=== PATIENT | female | born 1945 | race Caucasian/White ===

== ENCOUNTER → 2016-12-03 | Outpatient (CLI) | payer MEDICARE, OTHER ==
--- NOTE | 2016-12-04 10:55 | US ---
EXAM DESCRIPTION: Thyroid CLINICAL HISTORY: THYROID NODULE COMPARISON: None. TECHNIQUE: Routine sonographic imaging of the thyroid gland. FINDINGS: Right thyroid lobe is homogeneous measuring 4.3 x 1.65 x 1.24 cm. A partially cystic relatively well-defined ovoid mass is observed in the lateral aspect of the right thyroid lobe measuring 2.16 x 1.54 x 1.14 cm. It has some central calcification within it. No hyperemia. Thyroid isthmus is normal in appearance measuring 0.38 cm. Left thyroid lobe is homogeneous measuring 3.45 x 1.39 x 0.91 cm. No thyroid mass. No hyperemia. IMPRESSION: Nodule is observed in the right thyroid lobe and deserves further evaluation with biopsy. Electronically signed by: Austin Olivas MD 12/04/2016 10:54 AM CDT
== END ==
LOC: US 10:55
PROVIDERS: ATTEND Family Medicine
DX: E04.1 Nontoxic single thyroid nodule (principal)

== ENCOUNTER → 2017-09-20 | Outpatient (CLI) | payer MEDICARE, OTHER ==
--- NOTE | 2017-09-20 14:41 | MRI ---
EXAM DESCRIPTION: Lumbar Spine w/o Contrast : Magnetic Resonance Imaging. CLINICAL HISTORY: RADICULOPATHY COMPARISON: None. TECHNIQUE: Multiplanar, multiple standard sequences, non contrast MRI, lumbar spine. FINDINGS: L5-S1: Grade 1 anterolisthesis. Posterior midline 4 mm disc bulge. Mild canal narrowing. Bilateral facet arthrosis and flavum ligament hypertrophy. Moderate right foraminal narrowing and mild left foraminal narrowing. L4-5: Disc desiccation and mild posterior disc bulge. Bilateral flavum ligament hypertrophy and right facet arthrosis. AP canal diameter 10 mm. Disc bulge into the bilateral foramina which are stenotic more on the right than the left. L3-4: Moderate disc space loss. Disc desiccation. Minimal anterior bulging. Posterior broad-based 4 mm disc bulge abutting the thecal sac and the descending L4 nerves. Left facet arthrosis with bilateral ligament hypertrophy. AP canal diameter 10 mm, borderline central stenotic. Moderate right foraminal narrowing and moderate to severe left foraminal narrowing. L2-3: Disc desiccation and moderate disc space loss. Anterior disc bulge and anterior Modic type II endplate reactive changes. Trace retrolisthesis. Bilateral facet arthrosis and bilateral flavum ligament hypertrophy. Moderate canal narrowing. Bilateral foramina are patent. L1-2: Disc desiccation and anterior disc space loss and Modic type II endplate reactive changes. Anterior bulging disc and endplate ridging. Posterior broad-based 4 mm disc bulge. Posterior flavum ligament hypertrophy. Canal and bilateral foramina are patent. T12-L1: Normal disc signal and disc space with no bulging. Posterior elements are unremarkable. Canal and foramina are patent. Conus terminates at L1. Minimal dextroscoliosis. Paravertebral soft tissues are unremarkable. Probable cyst left kidney less than 1 cm diameter. Ectasia of the abdominal aorta.. Normal marrow signal in the remaining vertebral bodies and the posterior elements. Vertebral bodies are not compressed at any level. IMPRESSION: 1. Grade 1 anterolisthesis L5-S1 with posterior disc bulge. Moderate right foraminal narrowing. 2. Borderline mild central canal stenosis L4-5 which is multifactorial with prominent flavum ligaments posteriorly. Bilateral borderline foraminal stenosis. Correlate for bilateral L4 radiculopathy. 3. Posterior broad-based disc bulge. Borderline mild central canal stenosis which is multifactorial. Moderate to severe left foraminal narrowing. 4. Anterior disc space loss disc bulge and moderate spondylosis at L1-2 and L2-3. Canal and foramina are not stenotic. Electronically signed by: Chris Anne MD 09/20/2017 2:39 PM CDT
== END ==
LOC: MRI 09:56
PROVIDERS: ATTEND Physical Medicine & Rehabilitation
DX: M43.17 Spondylolisthesis, lumbosacral region (principal); M51.26 Other intervertebral disc displacement, lumbar region

== ENCOUNTER → 2017-10-29 | Outpatient (CLI) | payer MEDICARE, OTHER ==
--- NOTE | 2017-10-29 20:20 | US ---
THYROID ULTRASOUND CLINICAL INFORMATION: Thyroid nodule. TECHNIQUE: Routine transcutaneous scannin-D and Doppler modes. COMPARISON: Ultrasound thyroid 12/03/2016. FINDINGS: Thyroid size: Right 3.9 x 1.8 x 1.8 cm. Left 3.2 x 1.6 x 1.1 cm. Isthmus 2.9 mm thick. Texture: Heterogeneous. Estimated total number of nodules >/=1 cm: 1 Number of spongiform nodules >/=2 cm not described below (TR1): 0 Number of mixed cystic and solid nodules >/=1.5 cm not described below (TR2): 0 Nodule #: 1 Maximum size: 2.0 cm; All dimensions 1.5 x 1.3 cm Location: right; mid Composition: solid/almost completely solid (2) Echogenicity: hypoechoic (2) Shape: not [id number] (0) Margins: ill-defined (0) Echogenic foci: macrocalcifications (1) ACR TI-RADS total points: 5. ACR TI-RADS risk category: TR4 (4-6 points) Significant change in size (>/= 20% in two dimensions and minimal increase of 2 mm): No Change in features: No Change in ACR TI-RADS risk category: No ACR TI-RADS recommendation: Ultrasound-guided fine needle aspiration. Soft tissue around the thyroid gland: No distinct mass or cyst. No large calcifications or parenchymal edema. No overlying skin changes. No abnormal vascularity. IMPRESSION: 1. Almost completely solid hypoechoic 2 cm nodule (# 1) with parallel orientation, ill-defined margins, and central macrocalcification. Stable since the prior study. ACR TI RADS risk category TR 4. If fine-needle biopsy was not performed since the prior recommendation in November 2016, this procedure is still recommended, under ultrasound guidance. 2. The soft tissue on the thyroid gland is unremarkable. ACR TI-RADS recommendations: TR5 (>/=7 points) - FNA if >/=1 cm, follow-up if 0.5 - 0.9 cm every year for 5 years TR4 (4-6 points) - FNA if >/=1.5 cm, follow-up if 1 - 1.4 cm in 1, 2, 3 and 5 years TR3 (3 points) - FNA if >/=2.5 cm, follow -up if 1.5 - 2.4 cm in 1, 3 and 5 years TR2 (2 points) and TR1 (0 points) - No FNA or follow-up * ACR TI-RADS recommends that no more than two nodules with the highest ACR TI-RADS total point should be biopsied and no more than four nodules should be followed. Electronically signed by: Chris Anne MD 10/29/2017 8:19 PM CDT
== END ==
LOC: US 13:30
PROVIDERS: ATTEND Nurse Practitioner Family
DX: E04.1 Nontoxic single thyroid nodule (principal)

== ENCOUNTER → 2017-11-08 | Outpatient (CLI) | payer MEDICARE, OTHER | LOC: GMATM 10:48 | PROVIDERS: ATTEND Family Medicine | DX: E04.1 Nontoxic single thyroid nodule (principal) ==

== ENCOUNTER → 2018-04-10 | Outpatient (CLI) | payer MEDICARE, OTHER ==
--- NOTE | 2018-04-10 11:25 | MAM ---
EXAM DESCRIPTION: 3D Screening BILATERAL : Digital Mammography. CLINICAL HISTORY: 72 years Female ANNUAL SCREENING . No complaints. No personal or family history of breast cancer. Childbirth. Postmenopausal 30 years. Currently on HRT. Bilateral breast augmentation. Lifetime risk of developing breast cancer (Tyrer-Cuzick model)(%): 3.3. COMPARISON: prior. No prior reports available. TECHNIQUE: Bilateral CC and MLO projection full-field images, with Jose Implant Displacement digital tomosynthesis mammographic technique. Bilateral 2-D digital full-field images, MLO and CC projections, non-displaced. CAD Bilateral digital 2-D full-field MLO images. CAD not available for tomosynthesis or 2-D images. FINDINGS: The breast parenchymal density pattern is: Heterogeneously dense breast tissue, which may obscure small masses. No skin thickening or nipple retraction. Bilateral subglandular saline implants. Symmetrical folding noted in the capsules bilaterally stable since the prior study. Bilateral axillary lymph nodes. Bilateral solitary microcalcifications. No new focal, stellate mass or density, focal asymmetry , and no suspicious microcalcifications bilaterally. Stable mammograms compared to prior study. Taking into account, differences in mammographic technique. IMPRESSION: Benign exam. BIRAD CATEGORY: 2 BENIGN FINDINGS. RECOMMENDATIONS: FOLLOW UP: Routine digital bilateral mammographic screening, one year interval from March 2018. Written communication explaining the IMPRESSION and follow-up, will be mailed to the patient and referring health care provider. According to the [employer], yearly mammograms are recommended starting at age 40 and continuing as long as a woman is in good health. Any breast change noted on a breast self-exam should be reported promptly to the patient's healthcare provider. Breast MRI is recommended for women with an approximately 20-25% or greater lifetime risk of breast cancer, including women with a strong family history of breast or ovarian cancer and women who have been treated for Hodgkin's disease. A negative mammographic report should not delay tissue diagnosis in patients with significant clinical history or physical findings. Extremely dense breast tissue limits the sensitivity of digital mammography. Electronically signed by: Chris Anne MD 04/10/2018 11:24 AM [employer]
== END ==
LOC: MAMMO 09:30
PROVIDERS: ATTEND Family Medicine
DX: Z12.31 Encounter for screening mammogram for malignant neoplasm of breast (principal)

== ENCOUNTER → 2018-05-21 | Outpatient (CLI) | payer MEDICARE, OTHER | LOC: GMAJ 15:18 | PROVIDERS: ATTEND Family Medicine | DX: I10 Essential (primary) hypertension (principal) ==

== ENCOUNTER → 2018-12-08 | Outpatient (CLI) | payer MEDICARE, OTHER | LOC: RESP 10:57 | PROVIDERS: ATTEND Family Medicine | DX: R00.2 Palpitations (principal) ==

== ENCOUNTER → 2019-11-03 | Outpatient (CLI) | payer MEDICARE, OTHER | LOC: GMAJ 11:33 | PROVIDERS: ATTEND Family Medicine | DX: E03.9 Hypothyroidism, unspecified (principal); I10 Essential (primary) hypertension; E78.00 Pure hypercholesterolemia, unspecified ==

== ENCOUNTER → 2020-02-05 | Outpatient (CLI) | payer MEDICARE, OTHER ==
--- NOTE | 2020-02-08 09:12 | CT ---
EXAM DESCRIPTION: Chest w/Contrast CLINICAL HISTORY: 74 years, Female, SHORTNESS OF BREATH COMPARISON: None TECHNIQUE: Thin-section axial CT images are obtained during rapid bolus administration of nonionic IV contrast media. Reconstructed MPR images are created and reviewed as well. This exam was performed according to our departmental dose-optimization program, which includes automated exposure control, adjustment of the mA and/or kV according to patient size and/or use of iterative reconstruction technique. FINDINGS: The lungs are adequately expanded with no acute infiltrates or pleural effusions or dominant masses. Minimal linear scarring and 3 mm nodularity in the anterolateral left apex noted. There is a small 5 x 3 mm pleural-based nodule along the undersurface of the right minor fissure in the anterolateral right lung base. Significant emphysematous change or bullous disease or fibrotic lung disease is not apparent. A modest retrocardiac hiatal hernia incidentally noted. Heart size is normal without pericardial effusion. Aortic atherosclerosis noted. Very little coronary artery calcification noted. Below the diaphragms no gross abnormality evident. Central hilar or middle mediastinal or superior mediastinal mass is not apparent. No abnormality of the thoracic inlet noted. The axillary regions are clear. Bilateral breast implants overlie the lower chest anterolaterally on each side. Modest anterior degenerative spurring in the dorsal spine without compression deformity or destructive process noted. The sternum appears intact. No abnormality of the chest wall evident. IMPRESSION: 1. Essentially clear lung funes with 3 x 5 mm noncalcified nodule along the undersurface of the right minor fissure without additional worrisome nodules identified. In a low risk patient for metastatic disease or primary pulmonary malignancy no further follow-up recommended. Consider [address] follow-up in a high risk patient. 2. Minimal pleural parenchymal scarring left pulmonary apex. No significant emphysematous or fibrotic or bullous disease seen. 3. Mild degenerative changes dorsal spine and bilateral breast implants noted in place. 2017 Fleischner Society Recommendations for Single Solid Lung Nodule Follow-Up based on size (average of long- and short-axis diameters) <6 mm Low-Risk Patient: No routine follow-up <6 mm High-Risk Patient: Optional CT at 12 months 6-8 mm Low-Risk Patient: CT at 6-[address] at 18-24 months 6-8 mm High-Risk Patient: CT at 6-[address] at 18-24 months >8 mm Low-Risk Patient: Consider CT, PET/CT or tissue sampling at 3 months >8 mm High-Risk Patient: Same as for low-risk patient Electronically signed by: Evert Marie MD 02/08/2020 9:10 AM CDT
== END ==
LOC: CT 12:59
PROVIDERS: ATTEND Family Medicine
DX: Z01.812 Encounter for preprocedural laboratory examination (principal); R06.02 Shortness of breath; R91.1 Solitary pulmonary nodule; J98.4 Other disorders of lung; M47.9 Spondylosis, unspecified; Z98.82 Breast implant status

== ENCOUNTER → 2020-04-18 | Outpatient (CLI) | payer MEDICARE, OTHER | LOC: GMAJ 11:04 | PROVIDERS: ATTEND Family Medicine | DX: D50.8 Other iron deficiency anemias (principal); E55.9 Vitamin D deficiency, unspecified; E03.9 Hypothyroidism, unspecified; Z79.899 Other long term (current) drug therapy; I10 Essential (primary) hypertension ==